=== PATIENT | male | born 1970 | race Caucasian/White ===

== ENCOUNTER 2019-02-18 10:38 | Emergency (ER) | payer OTHER ==
[~2019-02-18] VITALS: Ht 185.4 cm; Wt 95.3 kg
[2019-02-18] MEDS ORDERED: LISINOPRIL10 MG PO (10:51)
[2019-02-18] MEDS ORDERED: DILTIAZEM ER60 M1 PO (10:51)
[2019-02-18] MEDS ORDERED: ZOCOR20 MG PO (10:52)
[2019-02-18] MEDS ORDERED: NORCO 5-325 TA1 EAC1 PO (11:34)
[2019-02-18] MEDS ORDERED: IBUPROFEN 800800 MG PO (11:34)
[2019-02-18] MEDS ORDERED: DIAZEPAM 5 MG5 M1 PO (11:34)
[2019-02-18 11:57] VITALS: BP 159/98
== END 2019-02-18 11:58 | disposition home or self-care (01) ==
LOC: M.ERS 10:38
DX: S16.1XXA Strain of muscle, fascia and tendon at neck level, initial encounter (principal); S46.812A Strain of other muscles, fascia and tendons at shoulder and upper arm level, left arm, initial encounter; I10 Essential (primary) hypertension; E78.5 Hyperlipidemia, unspecified; F17.210 Nicotine dependence, cigarettes, uncomplicated; Z90.89 Acquired absence of other organs; Z88.0 Allergy status to penicillin; X58.XXXA Exposure to other specified factors, initial encounter; Y93.89 Activity, other specified; Y92.89 Other specified places as the place of occurrence of the external cause; Y99.0 Civilian activity done for income or pay